=== PATIENT | female | born 1935 | race Two or more races ===

== ENCOUNTER 2018-06-20 15:30 | Emergency (ER) | payer OTHER ==
[~2018-06-20] VITALS: Ht 162.6 cm; Wt 68.0 kg
[2018-06-20 15:36] VITALS: BP 127/74
== END 2018-06-20 21:00 | disposition left against medical advice (07) ==
LOC: ER 15:30 → EDBD 15:30 → ER 21:00
DX: R11.2 Nausea with vomiting, unspecified (principal); Z53.21 Procedure and treatment not carried out due to patient leaving prior to being seen by health care provider